=== PATIENT | male | born 1985 | race Caucasian/White ===

== ENCOUNTER 2020-01-05 21:12 | Emergency (ER) | payer OTHER ==
[~2020-01-05] VITALS: Ht 177.8 cm; Wt 63.0 kg
[~2020-01-05 21:12] MED LIST: ALEVE220 MG PO; DIPHENOXYLATE-1 EACH PO
--- OUTSIDE RECORDS SUMMARY | 2020-01-06 02:14 | XMS ---
PreManage Notification: LATONIA ANDERSON Security Erp Business Analyst Events No recent Security Events currently on file CR[facility]IA MET - [facility] CARE PROVIDERS There are no care providers on record at this time. Lina has no Care Guidelines for this patient. Lizette VISIT COUNT (12 MO.) 1 AGUIL[facility] Miller TOTAL 1 NOTE: Visits indicate total known visits. ED/UCC VISIT TRACKING (12 MO.) 01/05/2020 21:13 [facility] [place] TYPE: Emergency COMPLAINT: - MEDICAL CLEARANCE INPATIENT VISIT TRACKING (12 MO.) No inpatient visits to display in this time frame [id number]
== END 2020-01-06 11:07 | disposition home or self-care (01) ==
LOC: ED 21:12
DX: F22 Delusional disorders (principal); F90.9 Attention-deficit hyperactivity disorder, unspecified type; F17.200 Nicotine dependence, unspecified, uncomplicated; Z79.899 Other long term (current) drug therapy; Z20.828 Contact with and (suspected) exposure to other viral communicable diseases
CPT/HCPCS: 70450; 80053; 80176; 81001; 84443; 85025; 96372; 99285-25; C9803; G0480; J1200; J1630; J2060; U0003

== ENCOUNTER 2020-01-08 20:58 | Emergency (ER) | payer OTHER ==
[~2020-01-08] VITALS: Ht 177.8 cm; Wt 63.0 kg
--- OUTSIDE RECORDS SUMMARY | 2020-01-08 21:02 | XMS ---
PreManage Notification: LATONIA ANDERSON Security Contact Center Engineer Events No recent Security Events currently on file CRITERIA MET - [facility] - [facility] - 2 Visits in 30 Days CARE PROVIDERS There are no care providers on record at this time. Lina has no Care Guidelines for this patient. [facility] MO[facility] NOTE: Visits indicate total known visits. ED/C VISIT TRACKING (12 MO.) [facility] COMPLAINT: - PSYCH EVLAUATION 01/05/2020 21:13 [facility] [place] TYPE: Emergency COMPLAINT: - MEDICAL CLEARANCE INPATIENT VISIT TRACKING (12 MO.) No inpatient visits to display in this time frame [id number]
[2020-01-08] MEDS ORDERED: AMPHETAMINE SAL15 MG PO (21:24)
[2020-01-08] MEDS ORDERED: SEROQUEL100 MG PO (21:25)
[2020-01-08] MEDS ORDERED: DEPAKOTE250 MG PO (21:25)
== END 2020-01-09 12:51 | disposition home or self-care (01) ==
LOC: ED 20:58
DX: F22 Delusional disorders (principal); F90.9 Attention-deficit hyperactivity disorder, unspecified type; F17.200 Nicotine dependence, unspecified, uncomplicated; Z79.899 Other long term (current) drug therapy
CPT/HCPCS: 80053; 82550; 85025; 96372; 99284; G0480; J1200; J1630; J2060

== ENCOUNTER 2020-02-11 13:43 | Emergency (ER) | payer OTHER ==
[~2020-02-11] VITALS: Ht 177.8 cm; Wt 63.0 kg
[~2020-02-11 13:43] MED LIST changes: +AMPHETAMINE SAL15 MG PO; +DEPAKOTE250 MG PO; +SEROQUEL100 MG PO
--- OUTSIDE RECORDS SUMMARY | 2020-02-11 13:46 | XMS ---
PreManage Notification: LATONIA ANDERSON Security Rock Picker Events No recent Security Events currently on file CRITERIA MET - [facility] CARE PROVIDERS Name Unknown Case Management 01/10/2020-Current PHONE: [phone] Lina has no Care Guidelines for this patient. Care History Medical/Surgical 01/10/2020 [facility] - PATIENT IS [facility] ELIGIBLE, \T\middot;\T\nbsp; PLEASE REFER PATIENT TO [facility] FOR NON EMERGENT MEDICAL NEEDS. \T\middot;\T\nbsp; [facility] CAN SEE PATIENTS SAME DAY FOR APTS IF PATIENT CALLS FIRST THING IN THE MORNING. E.D. VISIT COUNT (12 MO.) 3 [facility] TOTAL 3 NOTE: Visits indicate total known visits. ED/UCC VISIT TRACKING (12 MO.) 02/11/2020 13:44 [facility] Neal OR TYPE: Emergency COMPLAINT: - MENTAL HEALTH EVAL 01/08/2020 21:00 [facility] [place] TYPE: Emergency COMPLAINT: - PSYCH EVLAUATION DIAGNOSES: - Attention-deficit hyperactivity disorder, unspecified type - Delusional disorders - Other skilled nursing (current) drug therapy - Nicotine dependence, unspecified, uncomplicated 01/05/2020 21:13 [facility] [place] TYPE: Emergency COMPLAINT: - MEDICAL CLEARANCE DIAGNOSES: - Nicotine dependence, unspecified, uncomplicated - Contact with and (suspected) exposure to other viral communicable diseases - Delusional disorders - Attention-deficit hyperactivity disorder, unspecified type - Other skilled nursing (current) drug therapy INPATIENT VISIT TRACKING (12 MO.) No inpatient visits to display in this time frame [id number]
== END 2020-02-11 18:08 | disposition home or self-care (01) ==
LOC: ED 13:43
DX: R45.851 Suicidal ideations (principal); F90.9 Attention-deficit hyperactivity disorder, unspecified type; F17.200 Nicotine dependence, unspecified, uncomplicated; Z79.899 Other long term (current) drug therapy
CPT/HCPCS: 80053; 80176; 81001; 84443; 85025; 99284; G0480